=== PATIENT | female | born 1985 | race Caucasian/White ===

== ENCOUNTER → 2017-07-17 | Outpatient (CLI) | payer BC ==
[~2017-07-17] MED LIST: ACET5ELI PO; ONDA4TAB7 PO
== END | disposition home or self-care (01) ==
LOC: DTH 10:05
PROVIDERS: ATTEND Surgery
DX: E66.01 Morbid (severe) obesity due to excess calories (principal)
CPT/HCPCS: 97803

== ENCOUNTER 2017-08-04 10:52 | Day surgery (SDC) | payer BC ==
[~2017-08-04] VITALS: Ht 180.3 cm; Wt 175.5 kg
[~2017-08-04 10:52] MED LIST changes: -ACET5ELI PO; -ONDA4TAB7 PO; +SODIUM CHLORIDE 0.9% 1000ML 1,000 ML IV ONE
[2017-08-04 11:56] VITALS: BP 128/76
[2017-08-04 12:07] LABS: HEMATOCRIT 35.7 % (36-48); MEAN CORPUSCULAR HEMOGLOBIN 23.4 pg (27.0-33.0); MEAN CORPUSCULAR HGB CONC 32.9 g/dL (32.0-36.0); MEAN CORPUSCULAR VOLUME 71.1 fL (79-99); PLATELET COUNT (AUTO) 399 K/uL (130-400); RED BLOOD CELL COUNT(AUTO) 5.02 MIL/uL (4.00-5.50); RED CELL DISTRIBUTION WIDTH 17.4 % (11.0-15.5)
[2017-08-04 12:24] LABS: CREATININE 0.7 mg/dL (0.5-1.5); POTASSIUM 3.9 mmol/L (3.5-5.1)
[2017-08-04] MEDS ORDERED: PROPOFOL 10 MG/ML 20ML VIAL IV ONE (12:47)
[2017-08-04 12:58] LABS: BASOPHILS % (MANUAL) 1 % (0-2); EOSINOPHILS % (MANUAL) 4 % (1-6); LYMPHOCYTES % (MANUAL) 21 % (22-44); MAN.DIFF COMMENT-IMPRESSION MANUAL DIFFERENTIAL; MONOCYTES % (MANUAL) 5 % (2-9); PLATELET MORPHOLOGY COMMENT ADEQUATE; SEGMENTED NEUTROPHILS % 69 % (40-70)
[2017-08-04 13:00] VITALS: BP 106/54
== END 2017-08-04 13:49 ==
LOC: SUH 10:52 → DAH 10:52 → SUH 13:49
PROVIDERS: ATTEND Surgery
DX: K21.9 Gastro-esophageal reflux disease without esophagitis (principal); M06.9 Rheumatoid arthritis, unspecified; D64.9 Anemia, unspecified; Z98.890 Other specified postprocedural states; Z90.49 Acquired absence of other specified parts of digestive tract; E66.01 Morbid (severe) obesity due to excess calories; Z98.84 Bariatric surgery status; Z88.0 Allergy status to penicillin; Z68.43 Body mass index [BMI] 50.0-59.9, adult
CPT/HCPCS: 36415; 43235; 80048; 84703; 85025; A4606; J2704; J7030

== ENCOUNTER → 2017-08-22 | Outpatient (CLI) | payer BC ==
[~2017-08-22] MED LIST changes: +ACET5ELI PO; +ONDA4TAB7 PO; -SODIUM CHLORIDE 0.9% 1000ML 1,000 ML IV ONE
== END | disposition home or self-care (01) ==
LOC: DTH 10:37
PROVIDERS: ATTEND Surgery
DX: E66.01 Morbid (severe) obesity due to excess calories (principal)
CPT/HCPCS: 97803

== ENCOUNTER → 2017-10-10 | Outpatient (CLI) | payer BC | END | disposition home or self-care (01) | LOC: DTH 09:52 | PROVIDERS: ATTEND Surgery | DX: E66.01 Morbid (severe) obesity due to excess calories (principal); K21.9 Gastro-esophageal reflux disease without esophagitis | CPT/HCPCS: 97803 ==

== ENCOUNTER 2017-10-16 06:06 | Inpatient (IN) | payer OTHER ==
[2017-10-11 12:57] VITALS: BP 131/61
[2017-10-11 13:11] LABS: BASOPHILS % (AUTO) 0.4 % (0.0-5.0); EOSINOPHILS % (AUTO) 2.2 % (0.0-8.0); LYMPHOCYTES % (AUTO) 21.5 % (21.0-51.0); MEAN CORPUSCULAR HEMOGLOBIN 22.5 pg (27.0-33.0); MEAN CORPUSCULAR HGB CONC 31.6 g/dL (32.0-36.0); MEAN CORPUSCULAR VOLUME 71.3 fL (79-99); MONOCYTES % (AUTO) 4.5 % (3.0-13.0); NEUTROPHILS % (AUTO) 71.4 % (40.0-77.0); PLATELET COUNT (AUTO) 443 K/uL (130-400); RED BLOOD CELL COUNT(AUTO) 4.77 MIL/uL (4.00-5.50); RED CELL DISTRIBUTION WIDTH 18.4 % (11.0-15.5); WHITE BLOOD COUNT (AUTO) 9.6 K/uL (4.8-10.8)
[2017-10-11 13:27] LABS: INR 0.92 (0.85-1.15); PROTHROMBIN TIME 9.7 SEC (9.6-11.6)
[~2017-10-16] VITALS: Ht 180.3 cm; Wt 171.3 kg
[2017-10-16] VITALS (21 sets, daily range): BP systolic 138–180; BP diastolic 60–101
[~2017-10-16 06:06] MED LIST changes: -ACET5ELI PO; -ONDA4TAB7 PO; +SODIUM CHLORIDE 0.9% 1000ML 1,000 ML IV SCH
[2017-10-16] MEDS: CLINDAMYCIN 600 MG/D5% WATER 50 ML IV SCH ×2 (07:30→09:02)
[2017-10-16] MEDS ORDERED: LACTATED RINGERS 1000ML 1,000 ML IV ONE (07:43)
[2017-10-16] MEDS ORDERED: GLYCOPYRROLATE 0.2 MG/ML 5 ML VIAL ONE (07:47)
[2017-10-16] MEDS ORDERED: NEOSTIGMINE 5MG/5ML SYR IV ONE (07:47)
[2017-10-16] MEDS ORDERED: ONDANSETRON HCL 4 MG/2 ML VIAL ONE (07:47)
[2017-10-16] MEDS ORDERED: DEXAMETHASONE SOD PHOSPHATE 10MG/ML 1ML VIAL ONE (07:47)
[2017-10-16] MEDS ORDERED: PROPOFOL 10 MG/ML 20ML VIAL IV ONE (07:47)
[2017-10-16] MEDS ORDERED: LIDOCAINE PF 2% 5ML ABBOJECT ONE (07:47)
[2017-10-16] MEDS ORDERED: FENTANYL CITRATE PF 50 MCG/1 ML 2ML VIAL ONE ×2 (07:48→09:26)
[2017-10-16] MEDS ORDERED: MIDAZOLAM HCL 1 MG/ML 2ML VIAL ONE (07:48)
[2017-10-16] MEDS ORDERED: BUPIVACAINE/PF 0.5% 30ML VIAL ONE (08:13)
[2017-10-16] MEDS ORDERED: OCTYL 2-CYANOACRYLATE 1 EACH TP ONE (08:13)
[2017-10-16] MEDS ORDERED: ONDANSETRON HCL 4 MG/2 ML VIAL IVP PRN (10:15)
[2017-10-16] MEDS ORDERED: MORPHINE SULFATE 5 MG/ML VIAL IVP PRN (10:15)
[2017-10-16] MEDS ORDERED: LABETALOL HCL 5 MG/ML 20ML VIAL IV ONE (10:25)
[2017-10-16] MEDS ORDERED: MORPHINE SULFATE 4 MG/1ML SYG ONE (10:34)
[2017-10-16] MEDS ORDERED: METOCLOPRAMIDE 10 MG/2 ML VIAL ONE (10:40)
[2017-10-16] MEDS ORDERED: PROMETHAZINE HCL 25 MG/ML 1ML AMPULE IM ONE ×2 (10:50→10:52)
[2017-10-16] MEDS ORDERED: MEPERIDINE-PF 25 MG/ML SYG ONE (10:50)
[2017-10-16] MEDS ORDERED: KETOROLAC TROMETHAMINE 30MG/ML ONE (11:10)
[2017-10-16] MEDS: LACTATED RINGERS 1000ML 1,000 ML IV SCH ×2 (11:56→18:45)
[2017-10-16] MEDS: CLINDAMYCIN 900 MG/D5% WATER 50 ML IV SCH ×3 (11:56→22:12)
[2017-10-16] MEDS: ENOXAPARIN SODIUM 30 MG/0.3 ML SQ SCH (22:12)
[2017-10-16] MEDS: FAMOTIDINE/PF 20 MG/2 ML VIAL IV SCH (22:13)
[2017-10-17] VITALS (7 sets, daily range): BP systolic 150–164; BP diastolic 76–90
[2017-10-17] MEDS: LACTATED RINGERS 1000ML 1,000 ML IV SCH ×2 (02:21→23:37)
[2017-10-17] MEDS: CLINDAMYCIN 900 MG/D5% WATER 50 ML IV SCH ×4 (04:04→22:06)
[2017-10-17 05:51] LABS: BASOPHILS % (AUTO) 0.2 % (0.0-5.0); HEMATOCRIT 32.1 % (36-48); LYMPHOCYTES % (AUTO) 11.5 % (21.0-51.0); MEAN CORPUSCULAR HEMOGLOBIN 23.4 pg (27.0-33.0); MEAN CORPUSCULAR HGB CONC 32.7 g/dL (32.0-36.0); MEAN CORPUSCULAR VOLUME 71.5 fL (79-99); MONOCYTES % (AUTO) 6.7 % (3.0-13.0); NEUTROPHILS % (AUTO) 81.6 % (40.0-77.0); PLATELET COUNT (AUTO) 417 K/uL (130-400); RED BLOOD CELL COUNT(AUTO) 4.49 MIL/uL (4.00-5.50); RED CELL DISTRIBUTION WIDTH 17.6 % (11.0-15.5); WHITE BLOOD COUNT (AUTO) 10.2 K/uL (4.8-10.8)
[2017-10-17 05:56] LABS: CREATININE 0.7 mg/dL (0.5-1.5); POTASSIUM 4.7 mmol/L (3.5-5.1)
[2017-10-17] MEDS ORDERED: DIATR MEGLU/DIATRIZOATE SODIUM 30 ML BOTTLE ONE (08:15)
[2017-10-17] MEDS: FAMOTIDINE/PF 20 MG/2 ML VIAL IV SCH ×2 (08:58→20:42)
[2017-10-17] MEDS: ENOXAPARIN SODIUM 30 MG/0.3 ML SQ SCH ×2 (08:58→20:40)
[2017-10-17] MEDS ORDERED: ACETAMINOPHEN-CODEINE ELIXIR 5 ML UDCUP PO PRN (17:00)
[2017-10-17] MEDS ORDERED: ACETAMINOPHEN ELIXIR 325 MG/10.15ML UDCUP PO PRN (17:00)
[2017-10-18 03:40] VITALS: BP 163/83
[2017-10-18] MEDS: CLINDAMYCIN 900 MG/D5% WATER 50 ML IV SCH (03:46)
[2017-10-18] MEDS ORDERED: ACET5ELI PO (07:26)
[2017-10-18] MEDS ORDERED: ONDA4TAB7 PO (07:26)
[2017-10-18 07:52] VITALS: BP 156/78
[2017-10-18 12:13] VITALS: BP 142/71
[2017-10-18] MEDS: ENOXAPARIN SODIUM 30 MG/0.3 ML SQ SCH (13:03)
== END 2017-10-18 13:30 | disposition home or self-care (01) | DRG 621 ==
LOC: DAHIP 06:06 → 4BH 10:39
PROVIDERS: ADMIT Surgery; ATTEND Surgery
PROC: 0DJ08ZZ Inspection of Upper Intestinal Tract, Via Natural or Artificial Opening Endoscopic (ICD-10-PCS; 2017-10-16)
PROC: 0DB64Z3 Excision of Stomach, Percutaneous Endoscopic Approach, Vertical (ICD-10-PCS; principal; 2017-10-16 08:56)
PROC: 0FB24ZZ Excision of Left Lobe Liver, Percutaneous Endoscopic Approach (ICD-10-PCS; 2017-10-16 08:56)
DX: E66.01 Morbid (severe) obesity due to excess calories (principal); R11.10 Vomiting, unspecified; Z68.43 Body mass index [BMI] 50.0-59.9, adult
CPT/HCPCS: 36415; 74240; 80048; 84703; 85025; 85610; 85730; 86850; 86900; 86901; 88307; 94760; A4606; J1100; J1650; J1885; J2001; J2175; J2250; J2270; J2405; J2550; J2704; J2710; J2765; J3010; J3490; J7030; J7120; Q9963